=== PATIENT | female | born 1940 ===

== ENCOUNTER → 2017-01-15 | Outpatient (CLI) | payer MEDICARE ==
[2017-01-15 14:42] LABS: BASO # 0.1 x10^3/uL (0.0-0.2); BASO % 1 % (0-3); EOS % 6 % (0-3); HEMATOCRIT 24.6 % (36.0-47.0); HEMOGLOBIN 7.6 g/dL (12.0-15.5); LYMPH # 0.6 x10^3/uL (1.0-4.8); LYMPH % 10 % (24-48); MEAN CORPUSCULAR HEMOGLOBIN 30 pg (25-35); MEAN CORPUSCULAR HGB CONC 31 g/dL (31-37); MEAN CORPUSCULAR VOLUME 97 fL (79-100); MONO % 10 % (0-9); NEUT % 73 % (31-73); PLATELET COUNT 147 x10^3/uL (140-400); RED BLOOD COUNT 2.52 x10^6/uL (3.50-5.40); RED CELL DISTRIBUTION WIDTH 21.4 % (11.5-14.5); WHITE BLOOD COUNT 5.4 x10^3/uL (4.0-11.0)
[2017-01-15 14:57] LABS: CREATININE 2.2 mg/dL (0.6-1.0); GFR 21.6; MAGNESIUM 1.9 mg/dL (1.8-2.4); POTASSIUM 4.5 mmol/L (3.5-5.1)
[2017-01-15 15:04] LABS: ANISOCYTOSIS MOD; PLT ESTIMATE ADEQUATE (ADEQUATE); SCHISTOCYTES FEW
== END | disposition home or self-care (01) ==
LOC: SPEC 14:13
PROVIDERS: ATTEND Internal Medicine
DX: I50.9 Heart failure, unspecified (principal); N17.9 Acute kidney failure, unspecified
CPT/HCPCS: 36415; 80048; 83735; 85007; 85027

== ENCOUNTER 2017-04-12 22:29 | Inpatient (IN) | payer MEDICARE, OTHER ==
[~2017-04-12] VITALS: Ht 154.9 cm; Wt 63.1 kg
[2017-04-12] MEDS ORDERED: CALCIUM GLUCONATE 1,000 MG/10 ML VIAL. IVP ONE (23:00)
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
[2017-04-12 23:11] LABS: BASO % 0 % (0-3); EOS % 0 % (0-3); HEMATOCRIT 24.1 % (36.0-47.0); HEMOGLOBIN 7.7 g/dL (12.0-15.5); LYMPH # 0.3 x10^3/uL (1.0-4.8); LYMPH % 5 % (24-48); MEAN CORPUSCULAR HEMOGLOBIN 30 pg (25-35); MEAN CORPUSCULAR HGB CONC 32 g/dL (31-37); MEAN CORPUSCULAR VOLUME 93 fL (79-100); MONO % 13 % (0-9); NEUT % 82 % (31-73); PLATELET COUNT 101 x10^3/uL (140-400); RED CELL DISTRIBUTION WIDTH 22.4 % (11.5-14.5); WHITE BLOOD COUNT 5.7 x10^3/uL (4.0-11.0)
[2017-04-12 23:23] LABS: CALCIUM 8.1 mg/dL (8.5-10.1); CREATININE 3.4 mg/dL (0.6-1.0); GFR 13.1; POTASSIUM 5.3 mmol/L (3.5-5.1)
[2017-04-12 23:35] LABS: PLT ESTIMATE DECREASED (ADEQUATE)
[2017-04-12 23:36] LABS: ANISOCYTOSIS MOD; BURR CELLS FEW; POIKILOCYTOSIS MOD; SCHISTOCYTES FEW
[2017-04-12 23:37] LABS: ACANTHOCYTES OCC
[2017-04-13] VITALS (7 sets, daily range): BP systolic 130–188; BP diastolic 37–75
[2017-04-13] MEDS ORDERED: SODIUM POLYSTYRENE SULFONATE 15 GM/60 ML ORAL.SUSP. PO ONE
[2017-04-13 00:03] LABS: BILIRUBIN,URINE NEGATIVE (NEG); GLUCOSE,URINE NEGATIVE (NEG); NITRITE,URINE NEGATIVE (NEG); PROTEIN,URINE 30 mg/dL (NEG-TRACE); UROBILINOGEN,URINE 0.2 mg/dL (0.2 mg/dL)
[2017-04-13 00:14] LABS: BACTERIA,URINE 0 /HPF (0-FEW); RBC,URINE 0 /HPF (0-2); SQUAMOUS EPITHELIAL CELL,UR MOD /LPF; WBC,URINE 0 /HPF (0-4)
[2017-04-13] MEDS ORDERED: ACETAMINOPHEN 325 MG TABLET. PO PRN ×2 (00:15→21:00)
[2017-04-13] MEDS ORDERED: ONDANSETRON PF 4 MG/2 ML VIAL. IV PRN ×2 (00:15→21:00)
[2017-04-13] MEDS ORDERED: fentaNYL PF VIAL 100 MCG/2 ML VIAL IV PRN (00:15)
[2017-04-13] MEDS ORDERED: VANCOMYCIN PER PHARMACY MC PRN (01:00)
[2017-04-13] MEDS ORDERED: PIP/TAZO PER PHARMACY MC PRN (01:00)
[2017-04-13] MEDS ORDERED: VANCOMYCIN 2 GM in IV NORMAL SALINE 500ML BAG 500 ML IV ONE (02:00)
[2017-04-13] MEDS: PIPERACILLIN/TAZOBACTAM 2.25 GM in IV NORMAL SALINE 50ML 50 ML IV SCH ×3 (02:05→17:04)
[2017-04-13] MEDS ORDERED: TRAM50TA PO (03:06)
[2017-04-13] MEDS ORDERED: INSU100I13 SQ (03:20)
[2017-04-13] MEDS ORDERED: NITR0.4T6 SL (03:20)
[2017-04-13] MEDS ORDERED: HYDR100T24 PO (03:20)
[2017-04-13] MEDS ORDERED: AMLO5TAB2 PO (03:20)
[2017-04-13] MEDS ORDERED: GUAI600T38 PO (03:20)
[2017-04-13] MEDS ORDERED: DEXT15DR5 EACHEYE (03:20)
[2017-04-13] MEDS ORDERED: PANT40TA3 PO (03:20)
[2017-04-13] MEDS ORDERED: INSU100C4 SQ (03:20)
[2017-04-13] MEDS ORDERED: ATOR10TA PO (03:20)
[2017-04-13] MEDS ORDERED: ALLO300T PO (03:20)
[2017-04-13] MEDS ORDERED: ASPI81TA2 PO (03:20)
[2017-04-13] MEDS ORDERED: PRAM0.255 PO (03:20)
[2017-04-13] MEDS ORDERED: FLUT9.9S NS (03:20)
[2017-04-13] MEDS ORDERED: ISOS20TA4 PO (03:20)
[2017-04-13] MEDS ORDERED: MELA3TAB PO (03:20)
[2017-04-13] MEDS ORDERED: CYAN10005 PO (03:20)
[2017-04-13] MEDS ORDERED: CARV3.122 PO (03:20)
[2017-04-13] MEDS ORDERED: DEXTROSE 50% 25 GM / 50ML DISP.SYRIN. IV ONE (05:15)
[2017-04-13] MEDS ORDERED: DEXTROSE 50% 25 GM / 50ML DISP.SYRIN. IV PRN (05:30)
--- NOTE | 2017-04-13 07:50 | RAD ---
Indication: Altered mental status. Technique: Upright portable chest radiograph was obtained and reviewed without comparison available. Findings: There is cardiomegaly. There may be a small left pleural effusion. Pulmonary vasculature is mildly prominent, although this could be accentuated by portable technique. There is no focal airspace disease. Median sternotomy wires are noted. Impression: 1. Cardiomegaly. 2. Pulmonary vasculature is mildly prominent, although this may be accentuated by portable technique. Mild vascular congestion should be considered.
--- NOTE | 2017-04-13 08:27 | PDOC2 ---
CARDIAC CONSULT DATE OF CONSULT Date of Consult DATE: 04/13/17 TIME: 08:18 REASON FOR CONSULT Reason for Consult: bradycardia REFERRING PHYSICIAN Referring Physician: White SOURCE Source: Chart review, Patient HISTORY OF PRESENT ILLNESS HISTORY OF PRESENT ILLNESS This is a 76 yo female admitted for noted altered mental status and bradycardia. She was noted by EMS with HR in the 30s and received atropine. Pt is currently drowsy and tied and does not complain of any SOA or chest pain. She is currently AOx3. Our conversation is limited as she is tired and easily drifts to sleep. She told me that she has seen a armhole sewer in the past and that her heart maybe weak. Family is not available for further details. Per chart review, the objective was to transfer her from [facility] for rehab and to set up hospice through that facility. She is currently a DNR and was offered dialysis in the past but elected not to. Per my conversation with her she wishes no invasive procedures. PAST MEDICAL HISTORY Cardiovascular: CAD, CHF, HTN, Hyperlipidemia CENTRAL NERVOUS SYSTEM: Other (encephalopathy, RLS) GI: GERD Heme/Onc: Anemia NOS Musculoskeletal: Osteoarthritis Renal/: Chronic renal failure Endocrine: Diabetes (2) PAST SURGICAL HISTORY Past Surgical History: Cholecystectomy, CABG, Other ([facility]) FAMILY HISTORY Family History: Family History Unknown SOCIAL HISTORY Smoke: No ALCOHOL: none Drugs: None Lives: Long Term CURRENT MEDICATIONS CURRENT MEDICATIONS Current Medications Medications (Trade) Dose Ordered Sig/Chayo Route PRN Reason Start Time Stop Time Status Last Admin Dose Admin Calcium Gluconate (Calcium Gluconate) 1,000 mg 1X ONCE IVP 04/12/17 23:00 04/12/17 23:01 DC 04/12/17 23:39 Sodium Polystyrene Sulfonate (Kayexalate) 30 gm 1X ONCE PO 04/13/17 00:00 04/13/17 00:01 DC 04/13/17 01:09 Vancomycin HCl (Vanco Per Pharmacy) 1 each PRN DAILY PRN MC SEE COMMENTS 04/13/17 01:00 04/13/17 02:16 Piperacillin Sod/ Tazobactam Sod 2.25 gm/Sodium Chloride 50 ml @ 100 mls/hr Q8H IV 04/13/17 01:00 04/13/17 02:05 Vancomycin HCl 2 gm/Sodium Chloride 500 ml @ 250 mls/hr 1X ONCE IV 04/13/17 02:00 04/13/17 03:59 DC 04/13/17 02:45 Dextrose (Dextrose 50%-Water Syringe) 25 gm 1X ONCE IV 04/13/17 05:15 04/13/17 05:16 DC 04/13/17 05:41 ALLERGIES ALLERGIES: Coded Allergies: No Known Drug Allergies (Unverified , 04/12/17) ROS Review of System limited due to mentation PHYSICAL EXAM General: Oriented X3, Cooperative, No acute distress HEENT: Atraumatic, Mucous membr. moist/pink Lungs: Other (faint basilar crackles) Heart: Regular rate (SB 40s ), Normal S1, Normal S2, Other (3/6 systolic murmur diffused) Abdomen: Soft, No tenderness Extremities: No cyanosis, Other (anasarca) Skin: Other (multiple skin bruising) Neuro: Normal speech, Sensation intact Psych/Mental Status: Other (drowsy) MUSCULOSKELETAL: Osteoarthritic changes both hands VITALS VITALS Vital Signs Date Time Temp Pulse Resp B/P (MAP) Pulse Ox O2 Delivery O2 Flow Rate FiO2 04/13/17 07:00 39 16 141/37 (71) 99 Room Air 04/13/17 04:30 97.7 97.7 LABS Lab: Laboratory Tests Test 04/12/17 22:54 04/12/17 22:55 04/12/17 23:55 04/13/17 03:20 Glucose (Fingerstick) 98 mg/dL (70-99) White Blood Count 5.7 x10^3/uL (4.0-11.0) Red Blood Count 2.60 x10^6/uL (3.50-5.40) Hemoglobin 7.7 g/dL (12.0-15.5) Hematocrit 24.1 % (36.0-47.0) Mean Corpuscular Volume 93 fL (79-100) Mean Corpuscular Hemoglobin 30 pg (25-35) Mean Corpuscular Hemoglobin Concent 32 g/dL (31-37) Red Cell Distribution Width 22.4 % (11.5-14.5) Platelet Count 101 x10^3/uL (140-400) Neutrophils (%) (Auto) 82 % (31-73) Lymphocytes (%) (Auto) 5 % (24-48) Monocytes (%) (Auto) 13 % (0-9) Eosinophils (%) (Auto) 0 % (0-3) Basophils (%) (Auto) 0 % (0-3) Neutrophils # (Auto) 4.7 x10^3uL (1.8-7.7) Lymphocytes # (Auto) 0.3 x10^3/uL (1.0-4.8) Monocytes # (Auto) 0.7 x10^3/uL (0.0-1.1) Eosinophils # (Auto) 0.0 x10^3/uL (0.0-0.7) Basophils # (Auto) 0.0 x10^3/uL (0.0-0.2) Segmented Neutrophils % 85 % (35-66) Lymphocytes % 4 % (24-48) Monocytes % 11 % (0-10) Platelet Estimate Decreased (ADEQUATE) Poikilocytosis Mod Basophilic Stippling Present Anisocytosis Mod [place] Cells Few Acanthocytes Occ Schistocytes Few RBC Morphology Bizarre Forms Few Sodium Level 128 mmol/L (136-145) 129 mmol/L (136-145) Potassium Level 5.3 mmol/L (3.5-5.1) 5.2 mmol/L (3.5-5.1) Chloride Level 97 mmol/L (98-107) 98 mmol/L (98-107) Carbon Dioxide Level 18 mmol/L (21-32) 16 mmol/L (21-32) Anion Gap 13 (6-14) 15 (6-14) Blood Urea Nitrogen 152 mg/dL (7-20) 149 mg/dL (7-20) Creatinine 3.4 mg/dL (0.6-1.0) 3.4 mg/dL (0.6-1.0) Estimated GFR (Cockcroft-Gault) 13.1 13.1 Glucose Level 102 mg/dL (70-99) 42 mg/dL (70-99) Calcium Level 8.1 mg/dL (8.5-10.1) 8.2 mg/dL (8.5-10.1) Urine Collection Type Unknown Urine Color Yellow Urine Clarity Cloudy Urine pH 5.0 Urine Specific [place] 1.015 Urine Protein 30 mg/dL (NEG-TRACE) Urine Glucose (UA) Negative mg/dL (NEG) Urine Ketones (Stick) Negative mg/dL (NEG) Urine Blood Negative (NEG) Urine Nitrite Negative (NEG) Urine Bilirubin Negative (NEG) Urine Urobilinogen Dipstick 0.2 mg/dL (0.2 mg/dL) Urine Leukocyte Esterase Negative (NEG) Urine RBC 0 /HPF (0-2) Urine WBC 0 /HPF (0-4) Urine Squamous Epithelial Cells Mod /LPF Urine Amorphous Sediment Present /HPF Urine Bacteria 0 /HPF (0-FEW) Urine Hyaline Casts Moderate /HPF Urine Mucus Slight /LPF Test 04/13/17 05:01 04/13/17 06:04 Glucose (Fingerstick) 37 mg/dL (70-99) 152 mg/dL (70-99) ASSESSMENT/PLAN ASSESSMENT/PLAN 1. Sinus Bradycardia: likely contributing to decreased mentation. Unknown baseline. Lyte imbalance/uremia contributing. EKG with LAFB/IVCD with first degree AV block. HR in the 40s. BP stable. QTc 472 2. Metabolic/uremic encephalopathy 3. Hyperkalemia/hyponatremia 4. Anemia of chronic disease Hgb 7.7 5. CAD: CABG in the past 6. JAIDA on CKD5: refused dialysis in the past 7. HTN: controlled 8. DM2/HLP: Hypoglycemia this am 37. episodes likely contributing to decreased mentation 9. Possible UTI 10. Suspect chronic systolic CHF and notable for anasarca with multiple bruising Recommendations 1. Will obtain [facility] records. 2. No invasive procedures per pt wishes and will need to confirm with family regarding plan of care as pt was deemed for hospice arrangement [facility]. 3. Nephrology consult pending. 4. Correct K, will check Mg. Check CMP, TSH, PT/INR and ammonia level 5. Kayexelate has been given, will recheck BMP this afternoon. 6. Suspect poor intake, Start low rate fluids, unknown EF, adjustment per renal. 7. No AV jarad blocking agents 8. Caution with opioids 9. Maintain supportive care. Problems: VITA BRADFORD MATERIAL COORDINATOR April 13, 2017 08:27
--- NOTE | 2017-04-13 08:35 | EKG ---
[facility] [address] [place] [address] Test Date: 2017-04-13 Test Time: 08:26:33 Pat Name: DAVID WILSON Department: Room: 202 1 Gender: F Benefits Technician: : 1940 Requested By: VITA BRADFORD Order Number: [id number] Reading MD: Measurements Intervals [place] Rate: 41 P: 0 DC: 268 QRS: -49 QRSD: 150 T: 73 QT: 566 QTc: 472 Interpretive Statements SINUS BRADYCARDIA PROLONGED DC INTERVAL ABNORMAL LEFT AXIS DEVIATION NON SPECIFIC INTRAVENTRICULAR BLOCK QRS(T) CONTOUR ABNORMALITY CONSIDER ANTEROSEPTAL MYOCARDIAL DAMAGE ABNORMAL ECG RI6.01 No previous ECG available for comparison
[2017-04-13 09:14] LABS: ALBUMIN 3.1 g/dL (3.4-5.0); ALBUMIN/GLOBULIN RATIO 1.2 (1.0-1.7); CALCIUM 8.4 mg/dL (8.5-10.1); CREATININE 3.4 mg/dL (0.6-1.0); GFR 13.1; MAGNESIUM 2.5 mg/dL (1.8-2.4); TOTAL BILIRUBIN 0.8 mg/dL (0.2-1.0); TOTAL PROTEIN 5.6 g/dL (6.4-8.2)
[2017-04-13 09:15] LABS: CHOLESTEROL/HDL RATIO 1.5
[2017-04-13 09:16] LABS: POTASSIUM 5.3 mmol/L (3.5-5.1)
[2017-04-13] MEDS: IV NORMAL SALINE 1000ML BAG 1,000 ML IV SCH (09:30)
--- NOTE | 2017-04-13 10:04 | EKG ---
[facility] [address] [place] [address] Test Date: 2017-04-12 Test Time: 22:36:56 Pat Name: DAVID WILSON Department: Room: Gender: F Terrazzo Grinder: Uzair : 1940 Requested By: Leonard GRAHAM Order Number: [id number] Reading MD: Measurements Intervals [place] Rate: 46 P: 0 NV: 308 QRS: -56 QRSD: 150 T: 48 QT: 572 QTc: 502 Interpretive Statements SINUS BRADYCARDIA PROLONGED NV INTERVAL ABNORMAL LEFT AXIS DEVIATION S1,S2,S3 PATTERN LEFT ANTERIOR FASCICULAR BLOCK NON SPECIFIC INTRAVENTRICULAR BLOCK QRS(T) CONTOUR ABNORMALITY CONSIDER ANTEROSEPTAL MYOCARDIAL DAMAGE RI6.01 Unconfirmed report No previous ECG available for comparison
--- NOTE | 2017-04-13 10:08 | PDOC1 ---
History and Physical Past Medical History Cardiovascular: CAD, CHF, HTN, Hyperlipidemia CENTRAL NERVOUS SYSTEM: Other (encephalopathy, RLS) GI: GERD Heme/Onc: Anemia NOS Renal/: Chronic renal failure Endocrine: Diabetes (2) Past Surgical History Past Surgical History: Cholecystectomy, CABG, Other (C) Family History Family History: Family History Unknown Social History Smoke: No ALCOHOL: none Drugs: None Current Problem List Problem List Problems Medical Problems: (1) Hyperkalemia Status: Acute (2) Hyponatremia Status: Acute (3) Metabolic acidosis Status: Acute Current Medications Current Medications Current Medications Medications (Trade) Dose Ordered Sig/Chayo Start Time Stop Time Status Last Admin Dose Admin Acetaminophen (Tylenol) 650 mg PRN Q4HRS PRN 04/13/17 00:15 04/14/17 00:14 Calcium Gluconate (Calcium Gluconate) 1,000 mg 1X ONCE 04/12/17 23:00 04/12/17 23:01 DC 04/12/17 23:39 1,000 MG Dextrose (Dextrose 50%-Water Syringe) 12.5 gm PRN Q15MIN PRN 04/13/17 05:30 Fentanyl Citrate (Fentanyl 2ml Vial) 25 mcg PRN Q2HR PRN 04/13/17 00:15 04/14/17 00:14 Ondansetron HCl (Zofran) 4 mg PRN Q8HRS PRN 04/13/17 00:15 04/14/17 00:14 Piperacillin Sod/ Tazobactam Sod (Zosyn Per Pharmacy) 1 each PRN DAILY PRN 04/13/17 01:00 Piperacillin Sod/ Tazobactam Sod 2.25 gm/Sodium Chloride 50 ml @ 100 mls/hr Q8H 04/13/17 01:00 04/13/17 09:05 100 MLS/HR Sodium Polystyrene Sulfonate (Kayexalate) 30 gm 1X ONCE 04/13/17 00:00 04/13/17 00:01 DC 04/13/17 01:09 30 GM Sodium Chloride 1,000 ml @ 60 mls/hr [id number] 04/13/17 09:30 04/13/17 09:30 60 MLS/HR Vancomycin HCl 1 each 1X ONCE 04/15/17 03:00 04/15/17 03:01 Vancomycin HCl (Vanco Per Pharmacy) 1 each PRN DAILY PRN 04/13/17 01:00 04/13/17 02:16 1 EACH Vancomycin HCl 2 gm/Sodium Chloride 500 ml @ 250 mls/hr 1X ONCE 04/13/17 02:00 04/13/17 03:59 DC 04/13/17 02:45 250 MLS/HR Allergies Allergies Allergies Coded Allergies Type Severity Reaction Last Updated Verified No Known Drug Allergies 04/12/17 No ROS Review of System CONSTITUTIONAL: No fever or chills EYES: No recent changes SKIN: bruises CARDIOVASCULAR: No chest pain, syncope, palpitations, or edema RESPIRATORY: No SOB or cough GASTROINTESTINAL: No nausea, vomiting or abdominal pain NEUROLOGICAL: confusion ENDOCRINE: No cold or heat intolerance GENITOURINARY: No urgency or frequency of urination MUSCULOSKELETAL: No back pain or joint pain LYMPHATICS: No enlarged lymph nodes PSYCHIATRIC: No anxiety or depression Physical Exam Physical Exam GEN.: No apparent distress. Alert and oriented times 3 HEENT: Head is normocephalic, atraumatic NECK: Supple. no JVD LUNGS: Clear to auscultation. normal airflow HEART: RRR, S1, S2 present. Peripheral pulses intact ABDOMEN: Soft, nontender. Positive bowel sounds. EXTREMITIES: Without any cyanosis. NEUROLOGIC: Normal speech, normal tone PSYCHIATRIC: Normal affect, normal mood. SKIN: extensive ecchymoses Vitals Vitals Vital Signs Date Time Temp Pulse Resp B/P (MAP) Pulse Ox O2 Delivery O2 Flow Rate FiO2 04/13/17 07:00 39 16 141/37 (71) 99 Room Air 04/13/17 04:30 97.7 97.7 Labs Labs Laboratory Tests Test 04/12/17 22:54 04/12/17 22:55 04/12/17 23:55 04/13/17 03:20 Glucose (Fingerstick) 98 mg/dL (70-99) White Blood Count 5.7 x10^3/uL (4.0-11.0) Red Blood Count 2.60 x10^6/uL (3.50-5.40) Hemoglobin 7.7 g/dL (12.0-15.5) Hematocrit 24.1 % (36.0-47.0) Mean Corpuscular Volume 93 fL (79-100) Mean Corpuscular Hemoglobin 30 pg (25-35) Mean Corpuscular Hemoglobin Concent 32 g/dL (31-37) Red Cell Distribution Width 22.4 % (11.5-14.5) Platelet Count 101 x10^3/uL (140-400) Neutrophils (%) (Auto) 82 % (31-73) Lymphocytes (%) (Auto) 5 % (24-48) Monocytes (%) (Auto) 13 % (0-9) Eosinophils (%) (Auto) 0 % (0-3) Basophils (%) (Auto) 0 % (0-3) Neutrophils # (Auto) 4.7 x10^3uL (1.8-7.7) Lymphocytes # (Auto) 0.3 x10^3/uL (1.0-4.8) Monocytes # (Auto) 0.7 x10^3/uL (0.0-1.1) Eosinophils # (Auto) 0.0 x10^3/uL (0.0-0.7) Basophils # (Auto) 0.0 x10^3/uL (0.0-0.2) Segmented Neutrophils % 85 % (35-66) Lymphocytes % 4 % (24-48) Monocytes % 11 % (0-10) Platelet Estimate Decreased (ADEQUATE) Poikilocytosis Mod Basophilic Stippling Present Anisocytosis Mod [place] Cells Few Acanthocytes Occ Schistocytes Few RBC Morphology Bizarre Forms Few Sodium Level 128 mmol/L (136-145) 128 mmol/L (136-145) Potassium Level 5.3 mmol/L (3.5-5.1) 5.3 mmol/L (3.5-5.1) Chloride Level 97 mmol/L (98-107) 97 mmol/L (98-107) Carbon Dioxide Level 18 mmol/L (21-32) 14 mmol/L (21-32) Anion Gap 13 (6-14) 17 (6-14) Blood Urea Nitrogen 152 mg/dL (7-20) 142 mg/dL (7-20) Creatinine 3.4 mg/dL (0.6-1.0) 3.4 mg/dL (0.6-1.0) Estimated GFR (Cockcroft-Gault) 13.1 13.1 Glucose Level 102 mg/dL (70-99) 37 mg/dL (70-99) Calcium Level 8.1 mg/dL (8.5-10.1) 8.4 mg/dL (8.5-10.1) Urine Collection Type Unknown Urine Color Yellow Urine Clarity Cloudy Urine pH 5.0 Urine Specific [place] 1.015 Urine Protein 30 mg/dL (NEG-TRACE) Urine Glucose (UA) Negative mg/dL (NEG) Urine Ketones (Stick) Negative mg/dL (NEG) Urine Blood Negative (NEG) Urine Nitrite Negative (NEG) Urine Bilirubin Negative (NEG) Urine Urobilinogen Dipstick 0.2 mg/dL (0.2 mg/dL) Urine Leukocyte Esterase Negative (NEG) Urine RBC 0 /HPF (0-2) Urine WBC 0 /HPF (0-4) Urine Squamous Epithelial Cells Mod /LPF Urine Amorphous Sediment Present /HPF Urine Bacteria 0 /HPF (0-FEW) Urine Hyaline Casts Moderate /HPF Urine Mucus Slight /LPF BUN/Creatinine Ratio 42 (6-20) Magnesium Level 2.5 mg/dL (1.8-2.4) Total Bilirubin 0.8 mg/dL (0.2-1.0) Aspartate Amino Transf (AST/SGOT) 40 U/L (15-37) Alanine Aminotransferase (ALT/SGPT) 41 U/L (14-59) Alkaline Phosphatase 150 U/L (46-116) Total Protein 5.6 g/dL (6.4-8.2) Albumin 3.1 g/dL (3.4-5.0) Albumin/Globulin Ratio 1.2 (1.0-1.7) Triglycerides Level 23 mg/dL (0-150) Cholesterol Level 77 mg/dL (0-200) LDL Cholesterol, Calculated 20 mg/dL (0-100) VLDL Cholesterol, Calculated 5 mg/dL (0-40) Non-HDL Cholesterol Calculated 25 mg/dL (0-129) HDL Cholesterol 52 mg/dL (40-60) Cholesterol/HDL Ratio 1.5 Thyroid Stimulating Hormone (TSH) 3.401 uIU/mL (0.358-3.74) Test 04/13/17 05:01 04/13/17 06:04 04/13/17 08:30 04/13/17 09:21 Glucose (Fingerstick) 37 mg/dL (70-99) 152 mg/dL (70-99) 82 mg/dL (70-99) 124 mg/dL (70-99) Laboratory Tests Test 04/12/17 22:54 04/12/17 22:55 04/12/17 23:55 04/13/17 03:20 Glucose (Fingerstick) 98 mg/dL (70-99) White Blood Count 5.7 x10^3/uL (4.0-11.0) Red Blood Count 2.60 x10^6/uL (3.50-5.40) Hemoglobin 7.7 g/dL (12.0-15.5) Hematocrit 24.1 % (36.0-47.0) Mean Corpuscular Volume 93 fL (79-100) Mean Corpuscular Hemoglobin 30 pg (25-35) Mean Corpuscular Hemoglobin Concent 32 g/dL (31-37) Red Cell Distribution Width 22.4 % (11.5-14.5) Platelet Count 101 x10^3/uL (140-400) Neutrophils (%) (Auto) 82 % (31-73) Lymphocytes (%) (Auto) 5 % (24-48) Monocytes (%) (Auto) 13 % (0-9) Eosinophils (%) (Auto) 0 % (0-3) Basophils (%) (Auto) 0 % (0-3) Neutrophils # (Auto) 4.7 x10^3uL (1.8-7.7) Lymphocytes # (Auto) 0.3 x10^3/uL (1.0-4.8) Monocytes # (Auto) 0.7 x10^3/uL (0.0-1.1) Eosinophils # (Auto) 0.0 x10^3/uL (0.0-0.7) Basophils # (Auto) 0.0 x10^3/uL (0.0-0.2) Segmented Neutrophils % 85 % (35-66) Lymphocytes % 4 % (24-48) Monocytes % 11 % (0-10) Platelet Estimate Decreased (ADEQUATE) Poikilocytosis Mod Basophilic Stippling Present Anisocytosis Mod Latia Cells Few Acanthocytes Occ Schistocytes Few RBC Morphology Bizarre Forms Few Sodium Level 128 mmol/L (136-145) 128 mmol/L (136-145) Potassium Level 5.3 mmol/L (3.5-5.1) 5.3 mmol/L (3.5-5.1) Chloride Level 97 mmol/L (98-107) 97 mmol/L (98-107) Carbon Dioxide Level 18 mmol/L (21-32) 14 mmol/L (21-32) Anion Gap 13 (6-14) 17 (6-14) Blood Urea Nitrogen 152 mg/dL (7-20) 142 mg/dL (7-20) Creatinine 3.4 mg/dL (0.6-1.0) 3.4 mg/dL (0.6-1.0) Estimated GFR (Cockcroft-Gault) 13.1 13.1 Glucose Level 102 mg/dL (70-99) 37 mg/dL (70-99) Calcium Level 8.1 mg/dL (8.5-10.1) 8.4 mg/dL (8.5-10.1) Urine Collection Type Unknown Urine Color Yellow Urine Clarity Cloudy Urine pH 5.0 Urine Specific [place] 1.015 Urine Protein 30 mg/dL (NEG-TRACE) Urine Glucose (UA) Negative mg/dL (NEG) Urine Ketones (Stick) Negative mg/dL (NEG) Urine Blood Negative (NEG) Urine Nitrite Negative (NEG) Urine Bilirubin Negative (NEG) Urine Urobilinogen Dipstick 0.2 mg/dL (0.2 mg/dL) Urine Leukocyte Esterase Negative (NEG) Urine RBC 0 /HPF (0-2) Urine WBC 0 /HPF (0-4) Urine Squamous Epithelial Cells Mod /LPF Urine Amorphous Sediment Present /HPF Urine Bacteria 0 /HPF (0-FEW) Urine Hyaline Casts Moderate /HPF Urine Mucus Slight /LPF BUN/Creatinine Ratio 42 (6-20) Magnesium Level 2.5 mg/dL (1.8-2.4) Total Bilirubin 0.8 mg/dL (0.2-1.0) Aspartate Amino Transf (AST/SGOT) 40 U/L (15-37) Alanine Aminotransferase (ALT/SGPT) 41 U/L (14-59) Alkaline Phosphatase 150 U/L (46-116) Total Protein 5.6 g/dL (6.4-8.2) Albumin 3.1 g/dL (3.4-5.0) Albumin/Globulin Ratio 1.2 (1.0-1.7) Triglycerides Level 23 mg/dL (0-150) Cholesterol Level 77 mg/dL (0-200) LDL Cholesterol, Calculated 20 mg/dL (0-100) VLDL Cholesterol, Calculated 5 mg/dL (0-40) Non-HDL Cholesterol Calculated 25 mg/dL (0-129) HDL Cholesterol 52 mg/dL (40-60) Cholesterol/HDL Ratio 1.5 Thyroid Stimulating Hormone (TSH) 3.401 uIU/mL (0.358-3.74) Test 04/13/17 05:01 04/13/17 06:04 04/13/17 08:30 04/13/17 09:21 Glucose (Fingerstick) 37 mg/dL (70-99) 152 mg/dL (70-99) 82 mg/dL (70-99) 124 mg/dL (70-99) VTE Prophylaxis Ordered VTE Prophylaxis Devices: No VTE Pharmacological Prophylaxi: No AWILDA GARZON MD April 13, 2017 10:08
--- NOTE | 2017-04-13 10:28 | PDOC2 ---
CONSULT Date of Consult Date of Consult DATE: 04/13/17 TIME: 10:23 Reason for Consult Reason for Consult: THIS IS A 76 YR OLD ADMITTED WITH WEAKNESS. SHE HAS HAD A LENGTHY STAY AT [facility] AND SINCE THEN HAS BE[facility]. BROUGHT HERE TO THE HOSPITAL DUE TO DECLINING STATUS AND CONFUSION AND BRADYCARDIA WITH A HR IN THE 30-40 RANGE. SHE WAS GIVEN SOME ATROPINE WITH A RESPONSE OF HR IN THE 40-50. SHE IS NOTED TO HAVE A K OF 5.3 AND A BUN OF 152 AND CR OF 3.4. LABS ARE C/W ESRD WITH MET ACIDOSIS AND ANEMIA AND MALNUTRITION. SHE WAS OFFERED DIALYSIS AT [facility] BUT HAD DECIDED TO NOT PURSUE ANY AGGRESSIVE MEASURES Referring Physician Referring Physician: TERMULO Identification/Chief Complaint Chief Complaint ABOVE Source Source: Chart review, Patient History of Present Illness Reason for Visit: ABOVE Past Medical History Cardiovascular: CAD, CHF, HTN, Hyperlipidemia CENTRAL NERVOUS SYSTEM: Other (encephalopathy, RLS) GI: GERD Heme/Onc: Anemia NOS Musculoskeletal: Osteoarthritis Renal/: Chronic renal failure Endocrine: Diabetes (2) Past Surgical History Past Surgical History: Cholecystectomy, CABG, Other ([facility]) Family History Family History: No Significant, Family History Unknown Social History No ALCOHOL: none Drugs: None Lives: Intermediate Current Problem List Problem List Problems Medical Problems: (1) Hyperkalemia Status: Acute (2) Hyponatremia Status: Acute (3) Metabolic acidosis Status: Acute Current Medications Current Medications Current Medications Calcium Gluconate (Calcium Gluconate) 1,000 mg 1X ONCE IVP Last administered on 04/12/17 23:39; Start 04/12/17 at 23:00; Stop 04/12/17 at 23:01; Status DC Sodium Polystyrene Sulfonate (Kayexalate) 30 gm 1X ONCE PO Last administered on 04/13/17 01:09; Start 04/13/17 at 00:00; Stop 04/13/17 at 00:01; Status DC Ondansetron HCl (Zofran) 4 mg PRN Q8HRS PRN IV NAUSEA/VOMITING; Start 04/13/17 at 00:15; Stop 04/14/17 at 00:14 Fentanyl Citrate (Fentanyl 2ml Vial) 25 mcg PRN Q2HR PRN IV PAIN; Start at 00:15; Stop 04/14/17 at 00:14 Acetaminophen (Tylenol) 650 mg PRN Q4HRS PRN PO FEVER; Start 04/13/17 at 00:15 ; Stop 04/14/17 at 00:14 Vancomycin HCl (Vanco Per Pharmacy) 1 each PRN DAILY PRN MC SEE COMMENTS Last administered on 04/13/17 02:16; Start 04/13/17 at 01:00 Piperacillin Sod/ Tazobactam Sod (Zosyn Per Pharmacy) 1 each PRN DAILY PRN MC SEE COMMENTS; Start 04/13/17 at 01:00 Piperacillin Sod/ Tazobactam Sod 2.25 gm/Sodium Chloride 50 ml @ 100 mls/hr Q8H IV Last administered on 04/13/17 09:05; Start 04/13/17 at 01:00 Vancomycin HCl 2 gm/Sodium Chloride 500 ml @ 250 mls/hr 1X ONCE IV Last administered on 04/13/17 02:45; Start 04/13/17 at 02:00; Stop 04/13/17 at 03:59 ; Status DC Vancomycin HCl 1 each 1X ONCE MC ; Start 04/15/17 at 03:00; Stop 04/15/17 at 03 :01 Dextrose (Dextrose 50%-Water Syringe) 25 gm 1X ONCE IV Last administered on 05:41; Start 04/13/17 at 05:15; Stop 04/13/17 at 05:16; Status DC Dextrose (Dextrose 50%-Water Syringe) 12.5 gm PRN Q15MIN PRN IV SEE COMMENTS; Start 04/13/17 at 05:30 Sodium Chloride 1,000 ml @ 60 mls/hr [id number] IV Last administered on 09:30; Start 04/13/17 at 09:30 Active Scripts Active Reported Novolog (Insulin Aspart) 100 Unit/1 Ml Cartridge 100 Unit SQ 3 units at breakfast, 4 units at lunch, 5 units at dinner. Artificial Tears Eye Drops (Dextran 70/Hypromellose) 15 Ml Drops 1 Drop EACHEYE PRN BID Lantus Solostar (Insulin Glargine,Hum.rec.anlog) 100 Unit/1 Ml Insuln.pen 10 Unit SQ QHS Hydralazine Hcl 100 Mg Tablet 1 Tab PO TID Mirapex (Pramipexole Di-Hcl) 0.25 Mg Tablet 0.125 Mg PO QHS NITROGLYCERIN SubLingual (Nitroglycerin) 0.4 Mg Tab.subl 0.4 Mg SL PRN Q5MIN PRN Lipitor (Atorvastatin Calcium) 10 Mg Tablet 1 Tab PO QHS Isosorbide Dinitrate 20 Mg Tablet 20 Mg PO TID Flonase Allergy Relief (Fluticasone Propionate) 9.9 Ml Turrell.susp 1 Sprays NS DAILY Melatonin 3 Mg Tablet 5 Mg PO QHS Mucinex (Guaifenesin) 600 Mg Tablet.er 1 Tab PO BID Protonix (Pantoprazole Sodium) 40 Mg Tablet.dr 1 Tab PO DAILY Aspirin 81 Mg Tab.chew 1 Tab PO DAILY Allopurinol 300 Mg Tablet 0.5 Tab PO DAILY Vitamin B-12 (Cyanocobalamin (Vitamin B-12)) 1,000 Mcg Tablet 1 Tab PO DAILY Carvedilol 3.125 Mg Tablet 1 Tab PO BID Amlodipine Besylate 5 Mg Tablet 5 Mg PO DAILY Tramadol Hcl 50 Mg Tablet 1 Tab PO PRN Q6HRS Allergies Allergies: Coded Allergies: No Known Drug Allergies (Unverified , 04/12/17) ROS Review of System SOMNOLENT General: YES: Fatigue, Malaise, Appetite Eyes: Yes Decreased vision HEENT: YES: Heacaches Respiratory: YES: Shortness of breath Gastrointestinal: Yes Nausea, Yes Constipation Musculoskeletal: Yes Muscular Weakness Neurological: Yes Weakness Physical Exam General: Alert, Oriented X3, Cooperative, No acute distress HEENT: Atraumatic, PERRLA Heart: Regular rate Abdomen: Normal bowel sounds, No tenderness Extremities: No clubbing Neuro: Other (SOMNOLENT) Psych/Mental Status: Other (SOMNOLENT) MUSCULOSKELETAL: No deformity Vitals VITALS Vital Signs Date Time Temp Pulse Resp B/P (MAP) Pulse Ox O2 Delivery O2 Flow Rate FiO2 04/13/17 07:00 39 16 141/37 (71) 99 Room Air 04/13/17 04:30 97.7 97.7 Labs Labs Laboratory Tests Test 04/12/17 22:54 04/12/17 22:55 04/12/17 23:55 04/13/17 03:20 Glucose (Fingerstick) 98 mg/dL (70-99) White Blood Count 5.7 x10^3/uL (4.0-11.0) Red Blood Count 2.60 x10^6/uL (3.50-5.40) Hemoglobin 7.7 g/dL (12.0-15.5) Hematocrit 24.1 % (36.0-47.0) Mean Corpuscular Volume 93 fL (79-100) Mean Corpuscular Hemoglobin 30 pg (25-35) Mean Corpuscular Hemoglobin Concent 32 g/dL (31-37) Red Cell Distribution Width 22.4 % (11.5-14.5) Platelet Count 101 x10^3/uL (140-400) Neutrophils (%) (Auto) 82 % (31-73) Lymphocytes (%) (Auto) 5 % (24-48) Monocytes (%) (Auto) 13 % (0-9) Eosinophils (%) (Auto) 0 % (0-3) Basophils (%) (Auto) 0 % (0-3) Neutrophils # (Auto) 4.7 x10^3uL (1.8-7.7) Lymphocytes # (Auto) 0.3 x10^3/uL (1.0-4.8) Monocytes # (Auto) 0.7 x10^3/uL (0.0-1.1) Eosinophils # (Auto) 0.0 x10^3/uL (0.0-0.7) Basophils # (Auto) 0.0 x10^3/uL (0.0-0.2) Segmented Neutrophils % 85 % (35-66) Lymphocytes % 4 % (24-48) Monocytes % 11 % (0-10) Platelet Estimate Decreased (ADEQUATE) Poikilocytosis Mod Basophilic Stippling Present Anisocytosis Mod Latia Cells Few Acanthocytes Occ Schistocytes Few RBC Morphology Bizarre Forms Few Sodium Level 128 mmol/L (136-145) 128 mmol/L (136-145) Potassium Level 5.3 mmol/L (3.5-5.1) 5.3 mmol/L (3.5-5.1) Chloride Level 97 mmol/L (98-107) 97 mmol/L (98-107) Carbon Dioxide Level 18 mmol/L (21-32) 14 mmol/L (21-32) Anion Gap 13 (6-14) 17 (6-14) Blood Urea Nitrogen 152 mg/dL (7-20) 142 mg/dL (7-20) Creatinine 3.4 mg/dL (0.6-1.0) 3.4 mg/dL (0.6-1.0) Estimated GFR (Cockcroft-Gault) 13.1 13.1 Glucose Level 102 mg/dL (70-99) 37 mg/dL (70-99) Calcium Level 8.1 mg/dL (8.5-10.1) 8.4 mg/dL (8.5-10.1) Urine Collection Type Unknown Urine Color Yellow Urine Clarity Cloudy Urine pH 5.0 Urine Specific [place] 1.015 Urine Protein 30 mg/dL (NEG-TRACE) Urine Glucose (UA) Negative mg/dL (NEG) Urine Ketones (Stick) Negative mg/dL (NEG) Urine Blood Negative (NEG) Urine Nitrite Negative (NEG) Urine Bilirubin Negative (NEG) Urine Urobilinogen Dipstick 0.2 mg/dL (0.2 mg/dL) Urine Leukocyte Esterase Negative (NEG) Urine RBC 0 /HPF (0-2) Urine WBC 0 /HPF (0-4) Urine Squamous Epithelial Cells Mod /LPF Urine Amorphous Sediment Present /HPF Urine Bacteria 0 /HPF (0-FEW) Urine Hyaline Casts Moderate /HPF Urine Mucus Slight /LPF BUN/Creatinine Ratio 42 (6-20) Magnesium Level 2.5 mg/dL (1.8-2.4) Total Bilirubin 0.8 mg/dL (0.2-1.0) Aspartate Amino Transf (AST/SGOT) 40 U/L (15-37) Alanine Aminotransferase (ALT/SGPT) 41 U/L (14-59) Alkaline Phosphatase 150 U/L (46-116) Total Protein 5.6 g/dL (6.4-8.2) Albumin 3.1 g/dL (3.4-5.0) Albumin/Globulin Ratio 1.2 (1.0-1.7) Triglycerides Level 23 mg/dL (0-150) Cholesterol Level 77 mg/dL (0-200) LDL Cholesterol, Calculated 20 mg/dL (0-100) VLDL Cholesterol, Calculated 5 mg/dL (0-40) Non-HDL Cholesterol Calculated 25 mg/dL (0-129) HDL Cholesterol 52 mg/dL (40-60) Cholesterol/HDL Ratio 1.5 Thyroid Stimulating Hormone (TSH) 3.401 uIU/mL (0.358-3.74) Test 04/13/17 05:01 04/13/17 06:04 04/13/17 08:30 04/13/17 09:21 Glucose (Fingerstick) 37 mg/dL (70-99) 152 mg/dL (70-99) 82 mg/dL (70-99) 124 mg/dL (70-99) Laboratory Tests Test 04/12/17 22:54 04/12/17 22:55 04/12/17 23:55 04/13/17 03:20 Glucose (Fingerstick) 98 mg/dL (70-99) White Blood Count 5.7 x10^3/uL (4.0-11.0) Red Blood Count 2.60 x10^6/uL (3.50-5.40) Hemoglobin 7.7 g/dL (12.0-15.5) Hematocrit 24.1 % (36.0-47.0) Mean Corpuscular Volume 93 fL (79-100) Mean Corpuscular Hemoglobin 30 pg (25-35) Mean Corpuscular Hemoglobin Concent 32 g/dL (31-37) Red Cell Distribution Width 22.4 % (11.5-14.5) Platelet Count 101 x10^3/uL (140-400) Neutrophils (%) (Auto) 82 % (31-73) Lymphocytes (%) (Auto) 5 % (24-48) Monocytes (%) (Auto) 13 % (0-9) Eosinophils (%) (Auto) 0 % (0-3) Basophils (%) (Auto) 0 % (0-3) Neutrophils # (Auto) 4.7 x10^3uL (1.8-7.7) Lymphocytes # (Auto) 0.3 x10^3/uL (1.0-4.8) Monocytes # (Auto) 0.7 x10^3/uL (0.0-1.1) Eosinophils # (Auto) 0.0 x10^3/uL (0.0-0.7) Basophils # (Auto) 0.0 x10^3/uL (0.0-0.2) Segmented Neutrophils % 85 % (35-66) Lymphocytes % 4 % (24-48) Monocytes % 11 % (0-10) Platelet Estimate Decreased (ADEQUATE) Poikilocytosis Mod Basophilic Stippling Present Anisocytosis Mod Latia Cells Few Acanthocytes Occ Schistocytes Few RBC Morphology Bizarre Forms Few Sodium Level 128 mmol/L (136-145) 128 mmol/L (136-145) Potassium Level 5.3 mmol/L (3.5-5.1) 5.3 mmol/L (3.5-5.1) Chloride Level 97 mmol/L (98-107) 97 mmol/L (98-107) Carbon Dioxide Level 18 mmol/L (21-32) 14 mmol/L (21-32) Anion Gap 13 (6-14) 17 (6-14) Blood Urea Nitrogen 152 mg/dL (7-20) 142 mg/dL (7-20) Creatinine 3.4 mg/dL (0.6-1.0) 3.4 mg/dL (0.6-1.0) Estimated GFR (Cockcroft-Gault) 13.1 13.1 Glucose Level 102 mg/dL (70-99) 37 mg/dL (70-99) Calcium Level 8.1 mg/dL (8.5-10.1) 8.4 mg/dL (8.5-10.1) Urine Collection Type Unknown Urine Color Yellow Urine Clarity Cloudy Urine pH 5.0 Urine Specific [place] 1.015 Urine Protein 30 mg/dL (NEG-TRACE) Urine Glucose (UA) Negative mg/dL (NEG) Urine Ketones (Stick) Negative mg/dL (NEG) Urine Blood Negative (NEG) Urine Nitrite Negative (NEG) Urine Bilirubin Negative (NEG) Urine Urobilinogen Dipstick 0.2 mg/dL (0.2 mg/dL) Urine Leukocyte Esterase Negative (NEG) Urine RBC 0 /HPF (0-2) Urine WBC 0 /HPF (0-4) Urine Squamous Epithelial Cells Mod /LPF Urine Amorphous Sediment Present /HPF Urine Bacteria 0 /HPF (0-FEW) Urine Hyaline Casts Moderate /HPF Urine Mucus Slight /LPF BUN/Creatinine Ratio 42 (6-20) Magnesium Level 2.5 mg/dL (1.8-2.4) Total Bilirubin 0.8 mg/dL (0.2-1.0) Aspartate Amino Transf (AST/SGOT) 40 U/L (15-37) Alanine Aminotransferase (ALT/SGPT) 41 U/L (14-59) Alkaline Phosphatase 150 U/L (46-116) Total Protein 5.6 g/dL (6.4-8.2) Albumin 3.1 g/dL (3.4-5.0) Albumin/Globulin Ratio 1.2 (1.0-1.7) Triglycerides Level 23 mg/dL (0-150) Cholesterol Level 77 mg/dL (0-200) LDL Cholesterol, Calculated 20 mg/dL (0-100) VLDL Cholesterol, Calculated 5 mg/dL (0-40) Non-HDL Cholesterol Calculated 25 mg/dL (0-129) HDL Cholesterol 52 mg/dL (40-60) Cholesterol/HDL Ratio 1.5 Thyroid Stimulating Hormone (TSH) 3.401 uIU/mL (0.358-3.74) Test 04/13/17 05:01 04/13/17 06:04 04/13/17 08:30 04/13/17 09:21 Glucose (Fingerstick) 37 mg/dL (70-99) 152 mg/dL (70-99) 82 mg/dL (70-99) 124 mg/dL (70-99) Assessment/Plan Assessment/Plan IMP UREMIA MILD HYPERKALEMIA BRADYCARDIA DECONDITIONING ANEMIA MET ACIDOSIS MILD CHF PLAN PT DOES NOT WANT ANY INTERVENTION K WAS NOT CAUSE OF BRADYCARDIA IF TX IS TO BE PURSED SHE WILL NEED DIALYSIS AND PPM SHE DOES NOT WISH ANY INTERVENTIONS SUGGEST DISCHARGE WITH HOSPICE WILL BE AVAILABLE IF NEEDED OTHERWISE WILL SIGN OFF KYLE PARADA MD April 13, 2017 10:28
[2017-04-13] MEDS ORDERED: NITROGLYCERIN SUBLINGUAL 0.4 MG BOTTLE OF 25. SL PRN (11:15)
[2017-04-13] MEDS ORDERED: traMADol 50 MG TABLET PO PRN (11:15)
[2017-04-13] MEDS ORDERED: hydrALAZINE 20 MG/ML VIAL. IVP PRN ×2 (11:30→21:00)
[2017-04-13] MEDS ORDERED: POLYVINYL ALCOHOL 1.4% OPHTH SOLUTION 15ML BOTTLE. OU PRN ×2 (11:30→12:00)
[2017-04-13] MEDS ORDERED: ALLOPURINOL 300 MG TABLET. PO SCH (12:00)
[2017-04-13] MEDS ORDERED: FLUTICASONE 50MCG/NASAL SPRAY 16GM BOTTLE. NS SCH (12:00)
[2017-04-13] MEDS: amLODIPine BESYLATE 5 MG TABLET PO SCH (12:00)
[2017-04-13] MEDS ORDERED: ASPIRIN CHEWABLE 81 MG TABLET. PO SCH (12:00)
[2017-04-13] MEDS ORDERED: CYANOCOBALAMIN (VITAMIN B-12) 1,000 MCG TABLET. PO SCH (12:00)
[2017-04-13] MEDS: PANTOPRAZOLE 40 MG TABLET.DR. PO SCH (12:00)
[2017-04-13] MEDS: FLUTICASONE 50MCG/NASAL SPRAY 16GM BOTTLE. NS SCH (12:00)
[2017-04-13] MEDS ORDERED: ISOSORBIDE MONONITRATE 20 MG TABLET PO SCH (14:00)
[2017-04-13] MEDS: ISOSORBIDE DINITRATE 10 MG TABLET. PO SCH ×2 (14:30→21:00)
[2017-04-13] MEDS ORDERED: ALBUTEROL SULFATE 2.5 MG/3 ML NEBU. NEB PRN (21:00)
[2017-04-13] MEDS ORDERED: ATORVASTATIN CALCIUM 10 MG TABLET. PO SCH (21:00)
[2017-04-13] MEDS ORDERED: NON FORMULARY ITEM (Melatonin 5 MG) PO SCH (21:00)
[2017-04-13] MEDS: PRAMIPEXOLE 0.25 MG TABLET. PO SCH (21:00)
[2017-04-13] MEDS ORDERED: HYDROcodone/APAP 5/325MG 1 TAB TABLET PO PRN (21:00)
--- NOTE | 2017-04-13 21:51 | HP ---
ADMIT DATE: 04/13/2017 CHIEF COMPLAINT: Bradycardia. HISTORY OF PRESENT ILLNESS: A 76-year-old female with prior history of several comorbid conditions especially end-stage renal disease, not on hemodialysis, who has been transferred from senior living unit for bradycardia and questionable altered mental status. As per the EMS report, the patient was seen bradycardiac in low 30s to 40s, but symptomatic. She received some atropine. Also her blood sugars were low and she has received D50. Reportedly the patient was having altered mental status prior to admission; however, her mental status has been very clear throughout the exam of the EMS and my exam. She is alert, oriented x 3, able to answer all questions. She denies any chest pain, palpitations, or syncope. At the time of my examination, the patient's family members were available, son and [id number] both are present and all agree that the patient wants do not resuscitate and also she do not want any invasive procedures including hemodialysis. I did discuss with Cardiology her symptoms are mostly due to end-stage renal disease and worsening ammonia levels could be contributing to her bradycardia. The patient would like to treat her with comfort care measures, do not want any other treatments. PAST MEDICAL HISTORY: Type 2 diabetes mellitus on insulin, hyperlipidemia, hypertension and congestive heart failure, end-stage renal disease, restless leg syndrome. PAST SURGICAL HISTORY: Cholecystectomy and ____ surgery. SOCIAL HISTORY: No smoking, no alcohol, no drug abuse. Came from senior living unit. FAMILY HISTORY: Unknown. ALLERGIES: NKDA. REVIEW OF SYSTEMS: Please see my electronic H and P. PHYSICAL EXAMINATION: Please see my electronic H and P. LABORATORY FINDINGS: WBC 5.7, hemoglobin ____, MCV 93, platelets 101. Chemistry panel: Sodium 128, potassium 5.3, chloride 97, carbon dioxide 40, gap 17, BUN 142, creatinine 3.4, GFR 13.1, glucose ____. Urinalysis: Nitrites negative, leukocyte esterase negative. MRSA PCR negative. IMAGING STUDIES: Chest x-ray, cardiomegaly with prominent pulmonary vasculature. ASSESSMENT: 1. Severe bradycardia sinus, status post atropine prior to admission. 2. End-stage renal disease requiring hemodialysis, but the patient declined. 3. Hyperkalemia. 4. Metabolic acidosis due to renal failure. 5. Hypoglycemia, likely due to worsening renal functions. 6. Hypertension. 7. History of congestive heart failure. PLAN: 1. I did discuss with the patient and other family members in detail that the patient declined to have any more treatment. She would like to have comfort care measures and at the time of her decision she is alert, oriented x 3. I do not see any mental status problems. She is very clear. She does know what she wants and also son who is at bedside is agreeable to respect her wishes, which has been decided prior to this admission; however, the patient was transferred to ER for severe bradycardia while they were about to set up hospice treatment. At this time to respect the patient's wishes, I will start her on comfort care measures and will do not order any more further investigations. Meanwhile I will treat her blood pressure and other symptoms. 2. I did discuss with RN and will set up palliative care approach, probable meeting tomorrow afternoon with family. 3. Pain control with fentanyl 25 mcg and I will also stop her antibiotics. 4. Overall prognosis is very poor and guarded given her worsening nature of the renal function. Total time spent for H and P is 45 minutes. AWILDA GARZON MD DR: HECTOR/florian JOB#: [id number] / [id number] JACKIE
--- NOTE | 2017-04-14 01:23 | ACF ---
Admit Criteria Forms Admit Criteria Forms Admit Criteria Forms RENAL FAILURE, CHRONIC Clinical Indications for Admission to Inpatient Care (Place 'X' for any and all applicable criteria): Admission is indicated for ANY ONE of the following (1)(2)(3)(4)(5): [ ]I. Inpatient admission required rather than observation care (Use Renal Failure, Chronic: Observation Care Criteria as appropriate) because of ANY ONE of the following: [ ]a) Volume overload or uremic symptoms (eg, clinically significant pulmonary edema, hypertension, pericarditis, acidosis) too severe for, or not responsive (eg, for over 24 hours) to emergency department or observation care dialysis or treatment regimen (11) [ ]b) Hemodynamic instability that is severe or persistent [ ]c) Respiratory distress that is severe or persistent (11) [ ]d) Clinically significant electrolyte abnormality that requires inpatient care (eg,hyperkalemia with severe ECG findings)[B] [ ]e) Supplement O2 or respiratory therapy for over 24hrs that is performable only in acute inpatient setting [ ]f) Continuous IV infusion of anticoagulation, platelet inhibitor, vasoactive, or Antiarrhythmic medication (15), [ ]g) Pulmonary artery catheter monitoring [ ]h) Temporary pacemaker placement [ ]i) Emergent pericardiocentesis [ ]j) Other condition, treatment or monitoring requiring inpatient admission [ ]II. Unexplained syncope [A] [ ]III. Recurrent seizures [ ]IV. Severe infections not treatable in outpatient setting (eg, peritonitis)(9 ) [X]V. Cardiac arrhythmias of immediate concern [ ]. Encephalopathy [ ]VII.Bleeding abnormalities (eg, platelet dysfunction) with active (eg, gastrointestinal) bleeding Extended stay beyond goal length of stay may be needed for (3)(4)(35)(36): [ ]a) Continuing uremic complications [ ]b) Comorbidities or complications The original [employer] content created by [employer] has been revised. The portions of the content which have been revised are identified through the use of italic text or in bold, and [employer] has neither reviewed nor approved the modified material. All other unmodified content is copyright [employer]. Please see references footnoted in the original [employer] edition 2016 FRANK TRUONG April 14, 2017 01:23
[2017-04-14 03:00] VITALS: BP 157/67
[2017-04-14] MEDS: IV NORMAL SALINE 1000ML BAG 1,000 ML IV SCH (03:27)
[2017-04-14 07:00] VITALS: BP 159/46
[2017-04-14] MEDS: FLUTICASONE 50MCG/NASAL SPRAY 16GM BOTTLE. NS SCH (09:00)
[2017-04-14] MEDS: ISOSORBIDE DINITRATE 10 MG TABLET. PO SCH ×3 (09:00→21:00)
[2017-04-14] MEDS: amLODIPine BESYLATE 5 MG TABLET PO SCH (09:00)
[2017-04-14] MEDS: PANTOPRAZOLE 40 MG TABLET.DR. PO SCH (09:00)
[2017-04-14 11:00] VITALS: BP 143/46
--- NOTE | 2017-04-14 11:07 | PDOC ---
PROGRESS NOTES Chief Complaint Chief Complaint 1. Severe bradycardia sinus, likely due to worse renal functions 2. End-stage renal disease requiring hemodialysis, but the patient declined. 3. Hyperkalemia. 4. Metabolic acidosis due to renal failure. 5. Hypoglycemia, likely due to worsening renal functions. 6. Hypertension. 7. History of congestive heart failure. Plan d/w Pt in detail yesterday, Son was at bedside, She doesn't want any more treatment, Only comfort care measure, No hemodialysis consult hospice team for palliative measures, possible dc home with hospice when family is ready. Vitals Vitals Vital Signs Date Time Temp Pulse Resp B/P (MAP) Pulse Ox O2 Delivery O2 Flow Rate FiO2 04/14/17 08:25 97 Room Air 04/14/17 07:00 96.8 49 17 159/46 (83) 96.8 Physical Exam General: Alert, Oriented X3, Cooperative, No acute distress Heart: Normal S1, Normal S2 Abdomen: Normal bowel sounds, No tenderness Extremities: No clubbing Skin: Other (multiple skin bruising) Labs LABS Laboratory Tests Test 04/13/17 17:02 04/14/17 07:23 Glucose (Fingerstick) 95 mg/dL (70-99) 89 mg/dL (70-99) Assessment and Plan Assessmemt and Plan Problems Medical Problems: (1) Hyperkalemia Status: Acute (2) Hyponatremia Status: Acute (3) Metabolic acidosis Status: Acute Problems: Comment Review of Relevant I have reviewed the following items ignacio (where applicable) has been applied. Labs Laboratory Tests Test 04/12/17 22:54 04/12/17 22:55 04/12/17 23:55 04/13/17 03:20 Glucose (Fingerstick) 98 mg/dL (70-99) White Blood Count 5.7 x10^3/uL (4.0-11.0) Red Blood Count 2.60 x10^6/uL (3.50-5.40) Hemoglobin 7.7 g/dL (12.0-15.5) Hematocrit 24.1 % (36.0-47.0) Mean Corpuscular Volume 93 fL (79-100) Mean Corpuscular Hemoglobin 30 pg (25-35) Mean Corpuscular Hemoglobin Concent 32 g/dL (31-37) Red Cell Distribution Width 22.4 % (11.5-14.5) Platelet Count 101 x10^3/uL (140-400) Neutrophils (%) (Auto) 82 % (31-73) Lymphocytes (%) (Auto) 5 % (24-48) Monocytes (%) (Auto) 13 % (0-9) Eosinophils (%) (Auto) 0 % (0-3) Basophils (%) (Auto) 0 % (0-3) Neutrophils # (Auto) 4.7 x10^3uL (1.8-7.7) Lymphocytes # (Auto) 0.3 x10^3/uL (1.0-4.8) Monocytes # (Auto) 0.7 x10^3/uL (0.0-1.1) Eosinophils # (Auto) 0.0 x10^3/uL (0.0-0.7) Basophils # (Auto) 0.0 x10^3/uL (0.0-0.2) Segmented Neutrophils % 85 % (35-66) Lymphocytes % 4 % (24-48) Monocytes % 11 % (0-10) Platelet Estimate Decreased (ADEQUATE) Poikilocytosis Mod Basophilic Stippling Present Anisocytosis Mod Clover Cells Few Acanthocytes Occ Schistocytes Few RBC Morphology Bizarre Forms Few Sodium Level 128 mmol/L (136-145) 128 mmol/L (136-145) Potassium Level 5.3 mmol/L (3.5-5.1) 5.3 mmol/L (3.5-5.1) Chloride Level 97 mmol/L (98-107) 97 mmol/L (98-107) Carbon Dioxide Level 18 mmol/L (21-32) 14 mmol/L (21-32) Anion Gap 13 (6-14) 17 (6-14) Blood Urea Nitrogen 152 mg/dL (7-20) 142 mg/dL (7-20) Creatinine 3.4 mg/dL (0.6-1.0) 3.4 mg/dL (0.6-1.0) Estimated GFR (Cockcroft-Gault) 13.1 13.1 Glucose Level 102 mg/dL (70-99) 37 mg/dL (70-99) Calcium Level 8.1 mg/dL (8.5-10.1) 8.4 mg/dL (8.5-10.1) Urine Collection Type Unknown Urine Color Yellow Urine Clarity Cloudy Urine pH 5.0 Urine Specific Staples 1.015 Urine Protein 30 mg/dL (NEG-TRACE) Urine Glucose (UA) Negative mg/dL (NEG) Urine Ketones (Stick) Negative mg/dL (NEG) Urine Blood Negative (NEG) Urine Nitrite Negative (NEG) Urine Bilirubin Negative (NEG) Urine Urobilinogen Dipstick 0.2 mg/dL (0.2 mg/dL) Urine Leukocyte Esterase Negative (NEG) Urine RBC 0 /HPF (0-2) Urine WBC 0 /HPF (0-4) Urine Squamous Epithelial Cells Mod /LPF Urine Amorphous Sediment Present /HPF Urine Bacteria 0 /HPF (0-FEW) Urine Hyaline Casts Moderate /HPF Urine Mucus Slight /LPF BUN/Creatinine Ratio 42 (6-20) Magnesium Level 2.5 mg/dL (1.8-2.4) Total Bilirubin 0.8 mg/dL (0.2-1.0) Aspartate Amino Transf (AST/SGOT) 40 U/L (15-37) Alanine Aminotransferase (ALT/SGPT) 41 U/L (14-59) Alkaline Phosphatase 150 U/L (46-116) Total Protein 5.6 g/dL (6.4-8.2) Albumin 3.1 g/dL (3.4-5.0) Albumin/Globulin Ratio 1.2 (1.0-1.7) Triglycerides Level 23 mg/dL (0-150) Cholesterol Level 77 mg/dL (0-200) LDL Cholesterol, Calculated 20 mg/dL (0-100) VLDL Cholesterol, Calculated 5 mg/dL (0-40) Non-HDL Cholesterol Calculated 25 mg/dL (0-129) HDL Cholesterol 52 mg/dL (40-60) Cholesterol/HDL Ratio 1.5 Thyroid Stimulating Hormone (TSH) 3.401 uIU/mL (0.358-3.74) Test 04/13/17 05:01 04/13/17 06:00 04/13/17 06:04 04/13/17 08:30 Glucose (Fingerstick) 37 mg/dL (70-99) 152 mg/dL (70-99) 82 mg/dL (70-99) Nasal Screen MRSA (PCR) Negative (Negative) Test 04/13/17 09:10 04/13/17 09:21 04/13/17 17:02 04/14/17 07:23 Ammonia 64 mcmol/L (11-34) Glucose (Fingerstick) 124 mg/dL (70-99) 95 mg/dL (70-99) 89 mg/dL (70-99) Laboratory Tests Test 04/13/17 17:02 04/14/17 07:23 Glucose (Fingerstick) 95 mg/dL (70-99) 89 mg/dL (70-99) Microbiology 04/12/17 Blood Culture - Preliminary, Resulted NO GROWTH AFTER 1 DAY Medications Current Medications Calcium Gluconate (Calcium Gluconate) 1,000 mg 1X ONCE IVP Last administered on 04/12/17 23:39; Start 04/12/17 at 23:00; Stop 04/13/17 at 20:49; Status DC Sodium Polystyrene Sulfonate (Kayexalate) 30 gm 1X ONCE PO Last administered on 04/13/17 01:09; Start 04/13/17 at 00:00; Stop 04/13/17 at 00:01; Status DC Ondansetron HCl (Zofran) 4 mg PRN Q8HRS PRN IV NAUSEA/VOMITING; Start 04/13/17 at 00:15; Stop 04/14/17 at 00:14; Status DC Fentanyl Citrate (Fentanyl 2ml Vial) 25 mcg PRN Q2HR PRN IV PAIN; Start at 00:15; Stop 04/14/17 at 00:14; Status DC Acetaminophen (Tylenol) 650 mg PRN Q4HRS PRN PO FEVER; Start 04/13/17 at 00:15 ; Stop 04/14/17 at 00:14; Status Cancel Vancomycin HCl (Vanco Per Pharmacy) 1 each PRN DAILY PRN MC SEE COMMENTS Last administered on 04/13/17 02:16; Start 04/13/17 at 01:00; Stop 04/13/17 at 20:49 ; Status DC Piperacillin Sod/ Tazobactam Sod (Zosyn Per Pharmacy) 1 each PRN DAILY PRN MC SEE COMMENTS; Start 04/13/17 at 01:00; Stop 04/14/17 at 10:39; Status DC Piperacillin Sod/ Tazobactam Sod 2.25 gm/Sodium Chloride 50 ml @ 100 mls/hr Q8H IV Last administered on 04/13/17 17:04; Start 04/13/17 at 01:00; Stop at 20:49; Status DC Vancomycin HCl 2 gm/Sodium Chloride 500 ml @ 250 mls/hr 1X ONCE IV Last administered on 04/13/17 02:45; Start 04/13/17 at 02:00; Stop 04/13/17 at 20:49 ; Status DC Vancomycin HCl 1 each 1X ONCE MC ; Start 04/15/17 at 03:00; Stop 04/15/17 at 03 :00; Status DC Dextrose (Dextrose 50%-Water Syringe) 25 gm 1X ONCE IV Last administered on 05:41; Start 04/13/17 at 05:15; Stop 04/13/17 at 05:16; Status DC Dextrose (Dextrose 50%-Water Syringe) 12.5 gm PRN Q15MIN PRN IV SEE COMMENTS; Start 04/13/17 at 05:30 Sodium Chloride 1,000 ml @ 60 mls/hr [id number] IV Last administered on 03:27; Start 04/13/17 at 09:30 Allopurinol (Zyloprim) 150 mg DAILY PO ; Start 04/13/17 at 12:00; Stop 04/13/17 at 20:49; Status DC Amlodipine Besylate (Norvasc) 5 mg DAILY PO ; Start 04/13/17 at 12:00 Aspirin (Children'S Aspirin) 81 mg DAILY PO ; Start 04/13/17 at 12:00; Stop at 20:49; Status DC Atorvastatin Calcium (Lipitor) 10 mg QHS PO ; Start 04/13/17 at 21:00; Stop at 21:00; Status DC Cyanocobalamin (Vitamin B-12) 1,000 mcg DAILY PO ; Start 04/13/17 at 12:00; Stop 04/13/17 at 20:49; Status DC Nitroglycerin (Nitrostat) 0.4 mg PRN Q5MIN PRN SL CHEST PAIN; Start 04/13/17 at 11:15 Pantoprazole Sodium (Protonix) 40 mg DAILY PO ; Start 04/13/17 at 12:00 Pramipexole Dihydrochloride (miraPEX) 0.125 mg QHS PO ; Start 04/13/17 at 21:00 Tramadol HCl (Ultram) 50 mg PRN Q6HRS PRN PO PAIN Last administered on t 07:25; Start 04/13/17 at 11:15 Artificial Tears (Artificial Tears) 1 drop PRN BID PRN OU DRY EYE; Start at 11:30; Stop 04/13/17 at 11:51; Status DC Fluticasone Propionate (Flonase) 2 spray DAILY NS ; Start 04/13/17 at 12:00; Stop 04/13/17 at 12:00; Status DC Hydralazine HCl (Apresoline) 100 mg TID PO ; Start 04/13/17 at 14:00 Isosorbide Mononitrate (Ismo) 20 mg TID PO ; Start 04/13/17 at 14:00; Stop 04/13 at 14:10; Status DC Non-Formulary Medication 5 mg QHS PO ; Start 04/13/17 at 21:00; Stop 04/13/17 at 21:00; Status DC Hydralazine HCl (Apresoline) 10 mg PRN Q4HRS PRN IVP ELEVATED BP, SEE COMMENTS ; Start 04/13/17 at 11:30; Stop 04/13/17 at 20:52; Status DC Artificial Tears (Artificial Tears) 1 drop PRN BID PRN OU DRY EYE; Start at 12:00 Fluticasone Propionate (Flonase) 2 spray DAILY NS ; Start 04/13/17 at 12:00 Isosorbide Dinitrate (Isordil) 20 mg TID PO ; Start 04/13/17 at 14:30 Acetaminophen (Tylenol) 325 mg PRN Q6HRS PRN PO MILD PAIN / TEMP; Start at 21:00 Acetaminophen/ Hydrocodone Bitart (Lortab 5/325) 1 tab PRN Q6HRS PRN PO MODERATE TO SEVERE PAIN; Start 04/13/17 at 21:00 Hydralazine HCl (Apresoline) 10 mg PRN Q4HRS PRN IVP ELEVATED BP, SEE COMMENTS ; Start 04/13/17 at 21:00 Ondansetron HCl (Zofran) 4 mg PRN Q8HRS PRN IV NAUSEA/VOMITING; Start 04/13/17 at 21:00 Albuterol Sulfate (Ventolin Neb Soln) 2.5 mg PRN Q4HRS PRN NEB SHORTNESS OF BREATH; Start 04/13/17 at 21:00 Active Scripts Active Reported Novolog (Insulin Aspart) 100 Unit/1 Ml Cartridge 100 Unit SQ 3 units at breakfast, 4 units at lunch, 5 units at dinner. Artificial Tears Eye Drops (Dextran 70/Hypromellose) 15 Ml Drops 1 Drop EACHEYE PRN BID Lantus Solostar (Insulin Glargine,Hum.rec.anlog) 100 Unit/1 Ml Insuln.pen 10 Unit SQ QHS Hydralazine Hcl 100 Mg Tablet 1 Tab PO TID Mirapex (Pramipexole Di-Hcl) 0.25 Mg Tablet 0.125 Mg PO QHS NITROGLYCERIN SubLingual (Nitroglycerin) 0.4 Mg Tab.subl 0.4 Mg SL PRN Q5MIN PRN Lipitor (Atorvastatin Calcium) 10 Mg Tablet 1 Tab PO QHS Isosorbide Dinitrate 20 Mg Tablet 20 Mg PO TID Flonase Allergy Relief (Fluticasone Propionate) 9.9 Ml [place].susp 1 Sprays NS DAILY Melatonin 3 Mg Tablet 5 Mg PO QHS Mucinex (Guaifenesin) 600 Mg Tablet.er 1 Tab PO BID Protonix (Pantoprazole Sodium) 40 Mg Tablet.dr 1 Tab PO DAILY Aspirin 81 Mg Tab.chew 1 Tab PO DAILY Allopurinol 300 Mg Tablet 0.5 Tab PO DAILY Vitamin B-12 (Cyanocobalamin (Vitamin B-12)) 1,000 Mcg Tablet 1 Tab PO DAILY Carvedilol 3.125 Mg Tablet 1 Tab PO BID Amlodipine Besylate 5 Mg Tablet 5 Mg PO DAILY Tramadol Hcl 50 Mg Tablet 1 Tab PO PRN Q6HRS Vitals/I & O Vital Sign - Last 24 Hours 04/13/17 04/13/17 04/13/17 04/13/17 15:56 19:00 20:34 21:00 Temp 96.6 97.3 96.6 97.3 Pulse 45 48 39 Resp 19 18 B/P (MAP) 141/37 (71) 188/75 (112) 153/65 Pulse Ox 98 93 O2 Delivery Room Air Room Air Room Air 04/13/17 04/14/17 04/14/17 04/14/17 23:00 03:00 07:00 07:25 Temp 97.6 97.5 96.8 97.6 97.5 96.8 Pulse 49 50 49 Resp 18 18 17 B/P (MAP) 130/60 (83) 157/67 (97) 159/46 (83) Pulse Ox 99 97 95 97 O2 Delivery Room Air Room Air Room Air Room Air 04/14/17 04/14/17 08:00 08:25 Pulse Ox 97 O2 Delivery Room Air Room Air Intake and Output 04/13/17 04/13/17 04/14/17 15:00 23:00 07:00 Intake Total 50 ml 0 ml Balance 50 ml 0 ml AWILDA GARZON MD April 14, 2017 11:07
[2017-04-14 14:37] VITALS: BP 145/43
[2017-04-14 19:20] VITALS: BP 141/48
[2017-04-14] MEDS: PRAMIPEXOLE 0.25 MG TABLET. PO SCH (21:16)
[2017-04-14 23:20] VITALS: BP 159/49
[2017-04-15] MEDS ORDERED: VANCOMYCIN RANDOM LEVEL. MC ONE (03:00)
[2017-04-15 07:00] VITALS: BP 168/57
[2017-04-15] MEDS: amLODIPine BESYLATE 5 MG TABLET PO SCH (09:00)
[2017-04-15] MEDS: FLUTICASONE 50MCG/NASAL SPRAY 16GM BOTTLE. NS SCH (09:00)
[2017-04-15] MEDS: ISOSORBIDE DINITRATE 10 MG TABLET. PO SCH ×2 (09:00→14:00)
[2017-04-15] MEDS: PANTOPRAZOLE 40 MG TABLET.DR. PO SCH (09:25)
[2017-04-15 11:20] VITALS: BP 180/49
== END 2017-04-15 15:20 | disposition hospice, home (50) | DRG 291 ==
LOC: ER 23:37 → 2 NORTH 23:56
PROVIDERS: ADMIT Internal Medicine; ATTEND Internal Medicine
DX: I13.2 Hypertensive heart and chronic kidney disease with heart failure and with stage 5 chronic kidney disease, or end stage renal disease (principal); G93.41 Metabolic encephalopathy; N18.6 End stage renal disease; E87.2 Acidosis; E87.1 Hypo-osmolality and hyponatremia; E46 Unspecified protein-calorie malnutrition; R00.1 Bradycardia, unspecified; E78.00 Pure hypercholesterolemia, unspecified; E78.5 Hyperlipidemia, unspecified; G25.81 Restless legs syndrome; I25.10 Atherosclerotic heart disease of native coronary artery without angina pectoris; I50.9 Heart failure, unspecified; E11.22 Type 2 diabetes mellitus with diabetic chronic kidney disease; Z53.29 Procedure and treatment not carried out because of patient's decision for other reasons; Z51.5 Encounter for palliative care; K21.9 Gastro-esophageal reflux disease without esophagitis; Z66 Do not resuscitate; I44.0 Atrioventricular block, first degree; E87.5 Hyperkalemia; E11.649 Type 2 diabetes mellitus with hypoglycemia without coma; D63.8 Anemia in other chronic diseases classified elsewhere; Z79.4 Long term (current) use of insulin; Z95.1 Presence of aortocoronary bypass graft; Z99.2 Dependence on renal dialysis; Z90.49 Acquired absence of other specified parts of digestive tract; Z68.26 Body mass index [BMI] 26.0-26.9, adult; Z79.899 Other long term (current) drug therapy
CPT/HCPCS: 36415; 71010; 80048; 80053; 80061; 81001; 82140; 82947; 83735; 84443; 85007; 85027; 87040; 87641; 93005; 94250; 94760; J0610; J2543; J3370; J7030; J7040; J7042; 97110